=== PATIENT | female | born 1940 | race Caucasian/White ===

== ENCOUNTER 2016-11-10 13:50 | Emergency (ER) | payer MEDICARE ==
[~2016-11-10] VITALS: Ht 157.5 cm; Wt 68.0 kg
[~2016-11-10 13:50] MED LIST changes: -ASPIRIN 81MG TA81 MG PO; -IMODIUM 2MG. CAP2 MG PO; -ZOFRAN ODT4 MG PO
[2016-11-10] MEDS ORDERED: ASPIRIN 81MG TA81 MG PO (14:01)
--- NOTE | 2016-11-10 14:08 | Emergency Room Report ---
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 N Clinical Suspician of Infection? N Mental Status: 1 - Regular (Normal Baseline) Sepsis Risk:Possible Sepsis Risk Have you (or family members/close friends) recently traveled outside the [place]? N If Yes, where/when: Have you had exposure to infectious disease within the past month? N TB? Other? Specify: Comment History obtained from patient and niece. Patient complains of vomiting, diarrhea , and abdominal cramps for 3 days. She denies fever. No blood in her stool. No recent antibiotics or travel. She says she had the same symptoms for 4 days last week but it resolved spontaneously. She went to a pain clinic today for her usual injections, but they sent her here because she was ill. ALLERGIES Coded Allergies: Penicillins (I-HIVES 08/28/16) Home Medications Active Scripts HYDROCODONE/ACETAMINOPHEN (Hydrocodon-Acetaminophn 10-325) 1 TAB PO TID #90 TAB Prov: 03/31/16 Reported Medications ASPIRIN (Aspirin) 81 MG PO DAILY Rosuvastatin Calcium (Crestor) 10 MG PO QHS Hydrochlorothiazide (Hydrochlorothiazide 12.5MG) (Unknown Dose) PO DAILY Potassium Chloride (Klor-Con M20) 10 MEQ PO BID Omeprazole (Omeprazole 40MG) 40 MG PO DAILY Amlodipine Besylate (Amlodipine) 5 MG PO DAILY Ferrous Sulfate (Ferrous Sulfate 325MG) 325 MG PO BID Montelukast Sodium (Singulair 10MG) 10 MG PO DAILY Ibuprofen (Ibuprofen 800MG) 800 MG PO TID Alprazolam (Xanax 0.5MG) 0.5 MG PO TID GABAPENTIN (Gabapentin) 400 MG PO BID Dulaglutide (Trulicity) 0.75 MG SC WEEKLY History Medical History General CAD? No Angina: No DE: No Hypertension? Yes Hyperlipidemia? Yes CHF? No DVT? No PE? No COPD? Yes Asthma? No Anemia? No GERD? No Gastric ulcers? No GI Bleed? No Hernia? No Thyroid Problems? No Hypothyroidism? No CVA? No Seizures? No Diabetes? Yes Insulin Dependent: No Insulin Pump: No Home FSBS? Yes Renal Insuffiency? No End Stage Renal Disease? No UTI? No Stones? No BPH? No GB Disease: No Nephritic Syndrome? No Asplenia? No Hepatitis? No Sickle Cell Disease? No Arthritis? No Migraines? No Cataracts? No Glaucoma? No MRSA? No HIV? No TB? No Anxiety? Yes Depression? 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 Social History Smoking Hx Smoker: Current Every Day Smoker Tobacco: Yes Type Cigarettes Alcohol Alcohol: No Review of Systems All Other Systems Reviewed and Negative Constitutional denies fever Respiratory denies cough, denies shortness of breath Cardiovascular denies chest pain Gastrointestinal abdominal pain, diarrhea, vomiting Comment Decreased urination Physical Exam Vital Signs Vital Signs Date Time Temp Pulse Resp B/P Pulse O2 O2 Flow FiO2 Ox Delivery Rate 11/10 1353 98.3 108 20 133/70 97 General Appearance normal appearance, WD/WN Eye Exam - bilateral eye normal exam, bilateral eye PERRL, bilateral eye EOMI Ear, Nose, Throat mucous membranes dry Neck normal inspection, non-tender, supple, full range of motion Respiratory Status Yes: trachea midline, chest symmetrical, tender on palpation (LEFT anterior). No: respiratory distress. Lung Sounds bilateral: normal breath sounds, lungs clear. 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 No [place] was queried for this patient? Yes Reference #: [id number] Comment 24 rxs. last opiate rx 90 norco 10mg on 10/21/16. Results/Orders Laboratory Tests 11/10/16 1400: Sodium 140, Potassium 3.3 L, Chloride 103, Carbon Dioxide 25, BUN 21 H, Creatinine 1.3 H, Estimated Creat Clear 40 L, Estimated GFR (MDRD) 40 L, Glucose 99, Calcium 10.0, Total Bilirubin 0.3, AST 12 L, ALT 25, Alkaline Phosphatase 88, Troponin I < 0.02, Total Protein 8.4 H, Albumin 3.5, Globulin 4.9 H, Albumin/Globulin Ratio 0.7 L, Lipase 76, WBC 10.2, RBC 4.43, Hgb 14.7, Hct 40.6, MCV 91.7, RDW 14.2, Plt Count 378, MPV 6.1 L, Gran % 76.2, Gran # 7.8 , Lymphocytes % 12.0, Monocytes % 3.9, Eosinophils % 7.6, Basophils % 0.4, Lymphocytes # 1.2, Monocytes # 0.4, Eosinophils # 0.8 H, Basophils # 0.0, PUBS MCHC 36.2 H, MCH 33.2 H Current Medication Orders Sig/Albert Start time Last Medication Dose Route Stop Time Status Admin Potassium Chloride 40 MEQ ONCE ONE 11/10 1515 DC PO 11/10 1516 Sodium Chloride 1,000 ML .Q1H1M 11/10 1430 AC 11/10 IV 11/10 1530 1428 Sodium Chloride 1,000 ML .STK-MED ONE 11/10 1426 DC IV Sodium Chloride 10 ML PRN PRN 11/10 1415 AC IV 11/11 1415 Orders Procedure Date/time Status ELECTROCARDIOGRAM REQUEST 11/10 1416 Active IV SALINE LOCK 11/10 1416 Active URINALYSIS/COMPLETE 11/10 1416 Active TROPONIN I 11/10 1416 Complete LIPASE 11/10 1416 Complete DIARRHEA PANEL, PCR 11/10 1416 Active CBC WITH AUTO DIFF 11/10 141 Complete CHEM 12 PROFILE 11/10 1416 Complete 12 LEAD EKG-SADIQ (INITIAL) 11/10 UNK Active CM/EKG CM/EKG Comments EKG interpreted by Sheldon Winslow MD: Rhythm: sinus tachycardia Rate: 101 Joffre: normal Ectopy: none Conduction: normal ST Segment Changes: none T Wave Changes: none Q Waves: none No evidence of acute ischemia or injury Low voltage QRS Progress - 3:25 PM: The patient says she feels better. No nausea. She has had no diarrhea in the emergency room. Laboratory work is unremarkable. She says that she would like to go home. I feel this is reasonable. Departure Departure Disposition DC Home or Self Care(routine) Clinical Impression Primary Impression: Acute gastroenteritis Condition STABLE Referrals ZEFERINO NOBLE (Family) Patient Instructions DI for Viral Gastroenteritis -- Adult Additional Instructions If diarrhea persists, see your primary care physician to give a sample to send to the lab for evaluation. Additional instructions for ABDOMINAL PAIN, DIARRHEA, VOMITING: See your physician as soon as possible for further evaluation. Return immediately if worsening abdominal pain, vomiting, shortness of breath, fever, vomiting of blood, blood in stool, or abdominal distention. Prescriptions Current Visit Scripts Loperamide Hcl (Loperamide) 2 MG PO Q6HP PRN DIARRHEA #10 CAP Ondansetron (Zofran 4MG Odt) 4 MG PO Q8HP PRN NAUSEA AND VOMITING #10 ODT ED Critical Care Critical Care No
[2016-11-10 14:23] LABS: HEMOGLOBIN 14.7 g/dL (12.2-16.2); LYMPH # 1.2 K/mm3 (0.7-4.5)
[2016-11-10 14:33] LABS: BUN 21 mg/dL (7-18); GFR (ESTIMATED) 40 ML/MIN (59-)
[2016-11-10] MEDS ORDERED: ZOFRAN ODT4 MG PO (15:29)
[2016-11-10] MEDS ORDERED: IMODIUM 2MG. CAP2 MG PO (15:29)
[2016-11-10 15:42] VITALS: BP 117/54
== END 2016-11-10 15:43 | disposition home or self-care (01) ==
LOC: ER 13:50
PROVIDERS: Emergency Medicine
DX: K52.9 Noninfective gastroenteritis and colitis, unspecified (principal); Z72.0 Tobacco use; E11.9 Type 2 diabetes mellitus without complications; I10 Essential (primary) hypertension

== ENCOUNTER → 2016-11-10 | Day surgery (SDC) | payer MEDICARE ==
[~2016-11-10] VITALS: Ht 157.5 cm; Wt 68.0 kg
[~2016-11-10] MED LIST: ACETAMINOPHEN &1 TA1 PO; AMLO5TAB PO; ASPIRIN 81MG TA81 MG PO; BAYER ASPIRIN C81 MG PO; CRESTOR10 MG PO; FERROUS SULFAT325 M2 PO; FISH OIL1000 MG PO; GABAPENTIN 400400 MG PO; HYDROCHLOROTH12.5 M1 PO; IBUPROFEN800 MG PO; IMODIUM 2MG. CAP2 MG PO; KLOR-CON M2020 MEQ PO; METFORMIN500 MG PO; NORCO 325 MG-101 TAB PO; OMEPRAZOLE40 MG PO; SINGULAIR 10 MG10 MG PO; TRULICITY0.75 MG/0. SC; XANAX 0.5MG TA0.5 MG PO; ZOFRAN ODT4 MG PO
[2016-11-10 13:25] VITALS: BP 165/82
--- NOTE | 2016-11-10 13:47 | Pain Management SOAP Note ---
SOAP Note Pain Clinic Subjective: Patient presents today for bilateral SI joint injections. However, patient is ill. Patient hasn't nausea, vomiting, aches. We will reschedule her injections. Patient will follow-up with her PCP today. at [phone]
== END ==
LOC: PM 13:14
DX: R07.89 Other chest pain (principal); E11.8 Type 2 diabetes mellitus with unspecified complications

== ENCOUNTER → 2017-07-21 | Outpatient (CLI) | payer MEDICARE ==
[~2017-07-21] MED LIST changes: +ASPIRIN 81MG TA81 MG PO; +IMODIUM 2MG. CAP2 MG PO; +ZOFRAN ODT4 MG PO
[2017-07-21 19:11] LABS: AMPHETAMINES/METAMPHETAMINES NEGATIVE ng/mL (<1000)
[2017-07-26 16:40] LABS: Codeine Negative (Cutoff=100); Hydrocodone Positive (.); Hydromorphone Negative (Cutoff=100); Morphine Negative (Cutoff=100); Opiates Positive (.)
== END ==
LOC: LAB 16:49
PROVIDERS: Nurse Anesthetist, Certified Registered
DX: Z79.899 Other long term (current) drug therapy (principal)